=== PATIENT | male | born 1975 | race Caucasian/White ===

== ENCOUNTER 2023-05-11 01:32 | Day surgery (SDC) | payer BC, SELFPAY ==
[2023-04-27 13:22] VITALS: BMI 25.6
--- NOTE | 2023-05-08 10:51 | SUR.PREOP ---
Patient called regarding upcoming procedure. Reviewed preop instructions, appointment times, and procedure prep.
[2023-05-11 09:18] VITALS: BP 134/89; PULSE 90; RESP 18; TEMP 37.1; O2SAT 98
[2023-05-11 09:19] VITALS: BMI 24.7
[2023-05-11] MEDS: LACTATED RINGERS 1,000 ML 150 ML IV CONT (09:29)
--- NOTE | 2023-05-11 10:01 | PM.HPGS ---
History of Present Illness History of Present Illness Consent: Risks, benefits, and alternatives have been discussed and questions answered. Patient agrees to proceed with procedure. Chief complaint: neoplasm screening Narrative: Robin Valdivia is a 48 year old male here for first screening colonoscopy Review of Systems Constitutional: Constitutional: Denies headache(s) and Denies weakness Eyes: Eyes: Denies blurry vision ENT: Reports Normal hearing present, Denies headache(s) and Denies neck pain Cardiovascular: Cardiovascular: Denies chest pain and Denies dyspnea Respiratory: Respiratory: Denies dyspnea Gastrointestinal: Gastrointestinal: Reports no additional gastrointestinal complaints Genitourinary: Genitourinary: Denies dysuria Musculoskeletal: Musculoskeletal: Denies neck pain Integumentary/Breasts: Skin/Breast: Denies dry skin Neurologic: Reports Normal hearing present, Denies headache(s) and Denies weakness Psychiatric: Psychiatric: Denies anxiety Endocrine: Endocrine: Denies change in body appearance Hematologic/Lymphatic: Hematologic/Lymphatic: Denies easy bleeding Allergic/Immunologic: Allergic/Immunologic: Denies urticaria PMFSH Past Medical History Medical History (Updated 05/11/23 @ 10:01 by Gerald Jaramillo MD) Colon cancer screening Social History Social History Living arrangements: with family Spiritual care concerns: No Meds Home Medications and Allergies Home Medications Medication Instructions Recorded Confirmed Type rosuvastatin 10 mg tablet 10 mg PO DAILY 04/27/23 05/11/23 History Allergies Allergy/AdvReac Type Severity Reaction Status Date / Time No Known Allergies Allergy Verified 05/11/23 09:16 Vital Signs Vital Signs - 24 hr 05/11/23 09:18 Temperature 98.8 F Pulse Rate 90 Respiratory Rate 18 Blood Pressure 134/89 Pulse Oximetry 98 Oxygen Delivery Room Air Exam Const: General: comfortable and no acute distress HENMT: Face/Nose/Sinus: Normal nares present Eyes: General: appearance normal, both eyes and all related structures Neck: Neck: no JVD Resp: Auscultation: clear to auscultation bilaterally Cardio: Rate: regular rate Rhythm: regular rhythm GI: Inspection: non-distended GI Palp: Yes Soft to palpation Skin: General skin exam: normal color Neuro: General: gait normal Speech: normal speech Extrem: General: normal to inspection Psych: Mental Status: mental status grossly normal Assessment and Plan Assessment and plan (1) Colon cancer screening: Code(s): Z12.11 - Encounter for screening for malignant neoplasm of colon Status: Acute Assessment and Plan: colonoscopy
--- NOTE | 2023-05-11 10:05 | P.PNAN_ITS ---
Anes - Initial Pre Proc Eval Procedure: Operation Date: 05/11/23 10:30 Proposed Procedures p Screening Colonoscopy - Gerald Jaramillo MD Date/Time: 05/11/23 10:05 Surgeon: Gerald Jaramillo MD Pre Op Diagnosis: neoplasm screening Patient Data Age: 48 Gender: M Height: 1.82 m Weight: 82.1 kg Last Vital Signs Temp 98.8 F 05/11/23 09:18 Pulse 90 05/11/23 09:18 Resp 18 05/11/23 09:18 BP 134/89 05/11/23 09:18 Pulse Ox 98 05/11/23 09:18 O2 Del Method Room Air 05/11/23 09:18 Allergies Allergy/AdvReac Type Severity Reaction Status Date / Time No Known Allergies Allergy Verified 05/11/23 09:16 Home Medications Medication Instructions Recorded Confirmed Type rosuvastatin 10 mg tablet 10 mg PO DAILY 04/27/23 05/11/23 History Patient hx anesthesia problems: none Family hx anesthesia problems: none Results Review: All pre-operative results and documents have been reviewed as part of the pre- operative evaluation. [facility] Past Medical History Medical History (Updated 05/11/23 @ 10:01 by Gerald Jaramillo MD) Colon cancer screening Social History Social History Living arrangements: with family Spiritual care concerns: No Anes - Eval Final PreProcedure Day of Procedure 05/11/23 10:05 Patient weight: normal Heart: regular rate and rhythm Lungs: clear to auscultation Airway: Mallampati scale class II Neurological: alert and oriented Last oral intake: >/= 8 hours ASA classification: II Emergent: no Anesthetic plan: proceed Anesthesia type and monitoring: general GIVS and standard monitoring Results Review: All pre-operative results and documents have been reviewed as part of the pre- operative evaluation. Informed Consent: The patient's anesthetic plan and its attendant risks and benefits were discussed with the patient/family/POA. Questions were solicited and answers provided to the satisfaction of the patient/family/POA.
[2023-05-11 10:20] VITALS: BP 112/77; PULSE 78; RESP 31; O2SAT 97
[2023-05-11 10:30] VITALS: BP 118/90; PULSE 86; RESP 27; O2SAT 97
[2023-05-11 10:40] VITALS: BP 125/89; PULSE 88; RESP 25; O2SAT 98
== END 2023-05-11 10:47 | disposition home or self-care (01) ==
PROVIDERS: PCP Physician Assistant; Visit Provider Internal Medicine Gastroenterology
PROC: 0DJD8ZZ Inspection of Lower Intestinal Tract, Via Natural or Artificial Opening Endoscopic (ICD-10-PCS; CPT 45378; principal; 2023-05-11 10:30)
DX: Z12.11 Encounter for screening for malignant neoplasm of colon (principal); D12.2 Benign neoplasm of ascending colon; K64.8 Other hemorrhoids
CPT/HCPCS: 45385; 88305; J2704; J7120

== ENCOUNTER 2023-06-05 10:38 | Outpatient (CLI) | payer BC, SELFPAY ==
--- NOTE | ~2023-06-05 | MM_ITS ---
EXAMINATION: MM diagnostic soheila BI w cleo HISTORY: Left breast pain TECHNIQUE: Additional 3-D tomosynthesis images of the breasts were performed and synthetic 2-D images were generated. CAD analysis was submitted and interpreted. COMPARISON: None BREAST PARENCHYMAL COMPOSITION: Breast composed of scattered areas of fibroglandular density FINDINGS: The breasts are symmetric. No suspicious masses, calcifications or architectural distortion in either breast to suggest malignancy. There is benign symmetric gynecomastia. IMPRESSION: 1. No evidence for malignancy in either breast. 2. Recommend follow-up clinical management for breast pain and gynecomastia. BI-RADS Category 1: Negative Reviewed, dictated and finalized at location [facility]
== END 2023-06-05 10:39 | disposition home or self-care (01) ==
PROVIDERS: PCP Physician Assistant; Visit Provider Physician Assistant
DX: N64.4 Mastodynia (principal); Z80.3 Family history of malignant neoplasm of breast
CPT/HCPCS: 77062; 77066; G0279